=== PATIENT | female | born 1960 | race Caucasian/White ===

== ENCOUNTER 2017-12-23 10:27 | Emergency (ER) | payer OTHER ==
[~2017-12-23] VITALS: Ht 172.7 cm; Wt 147.4 kg
[2017-12-23] MEDS ORDERED: CARV12.578 PO (10:44)
[2017-12-23] MEDS ORDERED: DOXA1TAB38 PO (10:44)
[2017-12-23] MEDS ORDERED: BUME0.5T10 PO (10:44)
[2017-12-23] MEDS ORDERED: SPIR25TA78 PO (10:45)
[2017-12-23] MEDS ORDERED: GLIP1TAB PO (10:45)
[2017-12-23] MEDS ORDERED: traMADol 50 MG TAB PO ONE (11:25)
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
[2017-12-23 12:00] VITALS: BP 109/79
[2017-12-23] MEDS ORDERED: TRAM-420 PO (12:15)
== END 2017-12-23 12:20 | disposition home or self-care (01) ==
LOC: ER 10:35
DX: S13.9XXA Sprain of joints and ligaments of unspecified parts of neck, initial encounter (principal); M25.511 Pain in right shoulder; V48.5XXA Car driver injured in noncollision transport accident in traffic accident, initial encounter
CPT/HCPCS: 72040; 99283

== ENCOUNTER → 2017-12-23 | Outpatient (CLI) | payer OTHER ==
[~2017-12-23] MED LIST: BUME0.5T10 PO; CARV12.578 PO; DOXA1TAB38 PO; GLIP1TAB PO; SPIR25TA78 PO; TRAM-420 PO
== END ==
LOC: AMB 09:22
PROVIDERS: ATTEND Nurse Practitioner
DX: M25.511 Pain in right shoulder (principal); V48.6XXA Car passenger injured in noncollision transport accident in traffic accident, initial encounter; Y92.411 Interstate highway as the place of occurrence of the external cause
CPT/HCPCS: A0425; A0429